=== PATIENT | female | born 1985 | race Two or more races ===

== ENCOUNTER 2023-10-13 01:16 | Emergency (ER) | payer SELFPAY ==
[~2023-10-13] VITALS: Ht 162.6 cm; Wt 59.0 kg
[2023-10-13 02:52] VITALS: BP 129/72; PULSE 75; RESP 20; TEMP 97.8; O2SAT 98
[2023-10-15 08:27] LABS: Hepatitis B Surface Antibody Positive (Negative)
[2023-10-15 08:39] LABS: Hepatitis B Surface Antigen Negative (Negative)
== END 2023-10-13 02:54 | disposition home or self-care (01) ==
LOC: EEVIPCON 01:16 → ER 01:16
DX: Z20.6 Contact with and (suspected) exposure to human immunodeficiency virus [HIV] (principal); Z88.0 Allergy status to penicillin
CPT/HCPCS: 36415; 86703; 86706; 86803; 87340